=== PATIENT | female | born 1955 | race Caucasian/White ===

== ENCOUNTER 2022-11-24 08:40 | Emergency (ER) | payer OTHER, SELFPAY ==
[2022-11-24] VITALS (10 sets, daily range): BP systolic 143–202; BP diastolic 70–114; PULSE 82–108; RESP 18; TEMP 36.3; O2SAT 92–97; BMI 42.9
--- NOTE | 2022-11-24 09:12 | CRLHL7_ITS ---
For Patients: As a result of the Cures Act, medical imaging exams and procedure reports are released immediately into your electronic medical record. You may view this report before your referring provider. If you have questions, please contact your health care provider. Indication: Fall, injury Technique: Three views Comparison: None Findings/Impression: There is a comminuted fracture of the distal radial metaphysis. Fracture is transverse with dorsal displacement of the distal fracture fragment by 4 millimeters. Dorsal angulation with longitudinal extension of the fracture to the articular surface. Associated ulnar styloid avulsion without significant displacement. Prominent soft tissue swelling. Dictated by Min Hopper MD @ 11/24/2022 10:40:39 AM (Electronically Signed)
[2022-11-24] MEDS: ACETAMINOPHEN 500 MG TABLET 1000 MG PO (10:18)
[2022-11-24] MEDS: 0.9 % SODIUM CHLORIDE 1000 ml 1,000 ML IV (11:57)
[2022-11-24] MEDS: KETOROLAC 15 MG/ML inj IVP (12:03)
[2022-11-24] MEDS: MIDAZOLAM HCL 1 MG/ML inj 2 MG IVP (12:38)
[2022-11-24] MEDS: fentaNYL 100 MCG/2 ML inj 50 MCG IVP (12:39)
--- NOTE | 2022-11-24 12:39 | CRLHL7_ITS ---
For Patients: As a result of the Century Cures Act, medical imaging exams and procedure reports are released immediately into your electronic medical record. You may view this report before your referring provider. If you have questions, please contact your health care provider. Indication: Trauma. Postreduction films. Technique: Two views left wrist Comparison: 11/24/2022. Findings/Impression: Comminuted, mildly displaced fracture of the distal radius. Improved alignment postreduction, with mild residual displacement. Nondisplaced ulnar styloid fracture, unchanged. Dictated by Colin Aparicio MD @ 11/24/2022 1:25:52 PM (Electronically Signed)
--- NOTE | 2022-11-24 12:40 | ED.NURSE ---
Reduction completed to right wrist with minimal sedation. Patient tolerated well. No use of supplemental oxygen required.
--- NOTE | 2022-11-24 14:05 | ED.UPPEXIN ---
HPI - Extremity Injury (Upper) General Date Seen: 11/24/22 Chief Complaint: Extremity Pain/Injury, Upper Stated Complaint: Fall, wrist injury, hit head Time Seen by Provider: 11/24/22 08:51 Source: patient and family Mode of arrival: ambulatory Limitations: no limitations History of Present Illness HPI narrative: Patient is a 66-year-old female who tripped at home and suffered a left distal fracture, she suspects. She has a hard time moving her fingers, no numbness and tingling weakness, she did hit her head, but denies having any loss of conscious is on no anticoagulants, and does not want to be checked really for this. As she says her problem is her wrist. Here with her . Denies any numbness tingling or weakness, denies any neck pain or stiffness, nausea vomiting, or other issue. complaint: injury to: left Onset (ago): minute(s) Other injuries: none Hand dominance: Right Place: home Severity: moderate Related Data Home Medications Medication Instructions Recorded Confirmed No Known Home Medications 11/24/22 11/24/22 Allergies Allergy/AdvReac Type Severity Reaction Status Date / Time No Known Drug Allergies Allergy Verified 11/24/22 09:01 Review of Systems Status of ROS: Reports: 10 or more systems reviewed and unremarkable except as noted in History and below PFSH [facility] Social History Smoking Status: Never smoker Do you use any of these nicotine containing products: None Second hand tobacco smoke exposure: No How often do you have a drink containing alcohol: monthly or less How many standard drinks containing alcohol do you have on a typical day: 1 or 2 How often do you have six or more drinks on one occasion: Never AUDIT-C Alcohol total score: 1 Non-prescribed substance use: denies use service: No Exam Narrative: Exam Narrative: Patient is seen in room 1, sure left wrist has an obvious dinner fork deformity, there is no evidence of any significant the sensory abnormality abnormality of her wrist, or elbow, or shoulder, her neck has excellent cervical spine motion, flexion extension lateral flexion rotation, there is a bit of an abrasion on her nose, no bleeding, her nose appears straight there is no midfacial tenderness, pupils are equal round reactive to light her TMs are normal oropharynx is normal, Const: Vital Signs, click to edit/add: Vital Signs - 24 hr 11/24/22 08:55 11/24/22 10:18 11/24/22 11:56 Temperature 97.3 F L Pulse Rate 86 Pulse Rate [Right Pulse Oximeter] 108 H Respiratory Rate 18 Blood Pressure Blood Pressure [Ri ght Upper Arm] 202/114 H 196/94 H Pulse Oximetry 94 95 Oxygen Delivery Me thod Room Air 11/24/22 11:57 11/24/22 12:00 11/24/22 12:02 Temperature Pulse Rate 84 84 88 Pulse Rate [Right Pulse Oximeter] Respiratory Rate Blood Pressure 168/70 H 168/86 H Blood Pressure [Ri ght Upper Arm] Pulse Oximetry 95 97 96 Oxygen Delivery Me thod 11/24/22 12:15 11/24/22 12:21 11/24/22 12:30 Temperature Pulse Rate 84 82 86 Pulse Rate [Right Pulse Oximeter] Respiratory Rate Blood Pressure 174/90 H Blood Pressure [Ri ght Upper Arm] Pulse Oximetry 97 96 92 Oxygen Delivery Me thod 11/24/22 12:32 Temperature Pulse Rate 91 Pulse Rate [Right Pulse Oximeter] Respiratory Rate Blood Pressure 143/74 H Blood Pressure [Ri ght Upper Arm] Pulse Oximetry 94 Oxygen Delivery Me thod Course Vital Signs Vital signs: Initial Vital Signs Temperature 97.3 F L 11/24/22 08:55 Temperature Source Temporal Artery Scan 11/24/22 08:55 Pulse Rate 108 H 11/24/22 08:55 Respiratory Rate 18 11/24/22 08:55 Blood Pressure 202/114 H 11/24/22 08:55 Blood Pressure Mean 143 H 11/24/22 08:55 Blood Pressure Position Sitting 11/24/22 08:55 Pulse Oximetry 94 11/24/22 08:55 Oxygen Delivery Method Room Air 11/24/22 08:55 Vital Signs Temperature 97.3 F L 11/24/22 08:55 Pulse Rate 108 H 11/24/22 08:55 Respiratory Rate 18 11/24/22 08:55 Blood Pressure 202/114 H 11/24/22 08:55 Pulse Oximetry 94 11/24/22 08:55 Oxygen Delivery Method Room Air 11/24/22 08:55 Temperature 97.3 F L 11/24/22 08:55 Pulse Rate 91 11/24/22 12:32 Respiratory Rate 18 11/24/22 08:55 Blood Pressure 143/74 H 11/24/22 12:32 Pulse Oximetry 94 11/24/22 12:32 Oxygen Delivery Method Room Air 11/24/22 08:55 MDM - Extremity Injury (Upper) MDM Narrative Medical decision making narrative: Life-threatening differential diagnosis is considered include: Subarachnoid hemorrhage, subdural hemorrhage, epidural hemorrhage. Other differential diagnosis considered include concussion, closed head injury, or neck fracture. She clearly has what appears to be a distal radial fracture, this was confirmed. On x-ray. There was some displacement, and she needs to have this disimpacted, and straightening. I discussed with her options available to her, and we decided on IV sedation, using fentanyl and Versed, which worked well, I use the hematoma block, into the fracture, I was able to very nicely disimpacted, and straight no fracture, she is put in splint, molded to her, lower arm. Post reduction she has excellent radial and brachial pulses, cap refills normal sensations normal and felt much improved, pain hayes. We were able to discuss this with Orthopedics, they will see her tomorrow in follow-up. Post reduction films look much improved. Differential Diagnosis Differential diagnosis: Likely fracture of wrist Lab Data Attestation: I reviewed the patient's lab results. Discharge Plan Discharge Clinical Impression: Fracture of wrist Patient Disposition: Home w/ Parent or Adult Condition: Improved Instructions: Arm Fracture in Adults (DC), Wrist Fracture in Adults (ED), ORIF of a Wrist Fracture (DC) Additional Instructions: Follow up appointment is scheduled at the [facility] on 11/25 with a 10:40am appointment time. Please arrive at 10:20am to complete paperwork. If you have any questions, please call [phone]. [facility] [address] [address] home,rest and tylenol and ibuprofen, suggest elevation and to be seen tommorow. Prescriptions: No Action No Known Home Medications Follow Up/Referrals: Provider,Not a Local [Primary Care Provider] - Stand Alone Forms: [employer] Info Instructions
== END 2022-11-24 13:43 | disposition home or self-care (01) ==
PROVIDERS: Emergency Provider Family Medicine
DX: S52.502A Unspecified fracture of the lower end of left radius, initial encounter for closed fracture (principal); W01.0XXA Fall on same level from slipping, tripping and stumbling without subsequent striking against object, initial encounter
CPT/HCPCS: 25605; 73100; 73110; 96374; 96375; 99284; A9270; J1885; J2250; J3010; J7030

== ENCOUNTER 2022-11-25 11:50 | Outpatient (CLI) | payer OTHER, SELFPAY | END 2022-11-25 11:51 | disposition home or self-care (01) | PROVIDERS: Visit Provider Physician Assistant | DX: Z01.818 Encounter for other preprocedural examination (principal) | CPT/HCPCS: 80048; 85025 ==

== ENCOUNTER 2022-11-26 07:51 | Day surgery (SDC) | payer OTHER, SELFPAY ==
[2022-11-26] VITALS (8 sets, daily range): BP systolic 126–172; BP diastolic 69–97; PULSE 81–96; RESP 16–18; TEMP 36.2–36.8; O2SAT 93–98; BMI 44.2
[2022-11-26] MEDS: LACTATED RINGERS 1000 ML 1,000 ML 100 ML IV (08:40)
--- NOTE | 2022-11-26 08:47 | SUR.PREOP ---
TIME?OUT:?0850 AM PT/RN/MDA?VERIFICATION?OF?SURGICAL?SITE,?PROCEDURE,?AND?CONSENT OBTAINED?PRIOR?TO?INVASIVE?PROCEDURE.
[2022-11-26] MEDS: fentaNYL 100 MCG/2 ML inj IVP (08:50)
[2022-11-26] MEDS: MIDAZOLAM HCL 1 MG/ML inj IVP (08:50)
--- NOTE | 2022-11-26 08:58 | P.NB_ITS ---
Nerve Block Nerve Block Time Seen by Provider: 08:57 Date Seen: 11/26/22 Type of block requested by surgeon for post-operative analgesia: axillary Time out performed: Yes Verification of patient name: Yes Verification of date of : Yes Site marking: site marked Name of person performing procedure: Thiago Continuous monitoring Was continuous monitoring of O2 sat, B/P, nuclear monitoring technician, recorded every 15 minutes?: Yes Procedure Checklist: sterile prep, needles and gloves Ultrasound guided. Images saved: Yes Medications given in 5ml increments after negative aspiration: Ropivicaine %: 0.5 mL: 30 Needle gauge: 22 Patient tolerated procedure well: Yes Additional comments: Needle noted adjacent to nerve Block Charges Block Charge (with Pro Fee): Brachial Plexus Use of Ultrasound Machine for Block: Yes- US Guidance/pain block
--- NOTE | 2022-11-26 08:59 | W.ANESCHARGE ---
Anesthesia Charges Start Date/Time Anesthesia Start Date: 11/26/22 Anesthesia Start Time: 09:19 Stop Date/Time Anesthesia Stop Date: 11/26/22 Anesthesia Stop Time: 11:02
[2022-11-26] MEDS: SODIUM CHLORIDE 0.9 % (FLUSH) 10 ML SYRINGE IVF (09:04)
--- NOTE | 2022-11-26 09:15 | CRLHL7_ITS ---
For Patients: As a result of the Cures Act, medical imaging exams and procedure reports are released immediately into your electronic medical record. You may view this report before your referring provider. If you have questions, please contact your health care provider. INDICATION: Left wrist fracture. Open reduction. Internal fixation. TECHNIQUE: Fluoroscopically guided open reduction internal fixation of the left wrist. COMPARISON : Comparison is made with pre-surgical images November 24, 2022. FINDINGS: Three portable spot intraoperative images of left wrist were performed. A plate screw fixation device bridges the distal left radius. Adequate alignment. 67.2 seconds fluoroscopy time utilized. IMPRESSION: 67.2 seconds fluoroscopy time utilized intraoperatively. Dictated by Gagandeep Sahni MD @ 11/26/2022 10:51:18 AM (Electronically Signed)
[2022-11-26] MEDS: CEFAZOLIN 2 GM INJ IVP (09:34)
--- NOTE | 2022-11-26 10:45 | P.ORPRC_ITS ---
Procedure Note Date of procedure: 11/26/22
--- NOTE | 2022-11-26 10:45 | PM.ORPRC ---
Procedure Note Date of procedure: 11/26/22
--- NOTE | 2022-11-26 10:52 | PM.ORPRC ---
Procedure Note Date of procedure: 11/26/22 Procedure: PREOPERATIVE DIAGNOSIS: Angulated 3+ part intra-articular left upper extremity distal radius fracture POSTOPERATIVE DIAGNOSIS: Angulated 3+ part intra-articular left upper extremity distal radius fracture NAME OF OPERATION: Open reduction internal fixation SURGEON: Trae Merritt MD MOBILE HOME MECHANIC: Coco Cespedes PA-C ANESTHESIA: Supraclavicular block plus monitored anesthesia care ESTIMATED BLOOD LOSS: 0 mL COMPLICATIONS: None SPECIMENS: None DRAINS: None PREOPERATIVE ANTIBIOTICS: Ancef 2 grams INDICATIONS: The patient is a 66-year-old who fell landing on their upper extremity sustaining the above injury. Given the amount of angulation, reduction and plate fixation were recommended. The risks, benefits and expected outcomes were discussed in detail. These included but were not limited to: Infection, bleeding, injury to blood vessel or nerve, venous thromboembolism. All questions were answered to their satisfaction. Use of an assistant operations manager was necessary throughout the case for patient positioning and safety, maintenance of the reduction, surgical site dressing and splint application. PROCEDURE: A supraclavicular block was placed by Anesthesia. The patient was placed supine on the operating room table. IV sedation was administered. The reduction was obtained with longitudinal traction and volar force on the distal fragment, held by the assistant operations manager. The image intensifier was used to confirm an excellent reduction. The extremity was prepped and draped in the usual sterile fashion. The limb was exsanguinated with the Claudio bandage. The pneumatic tourniquet was inflated to 250 mm of mercury. A longitudinal incision was made over the flexor carpi radialis. Subcutaneous dissection was taken sharply through the FCR sheath. The FCR was retracted radially. Sharp dissection was carried through the floor of the FCR sheath. The flexor pollicis longus was retracted ulnarly. Sharp dissection was carried through the radial border of the pronator quadratus which was elevated ulnarly, exposing the fracture site. The assistant operations manager held retractors to expose the fracture. The volar cortex of the fracture is anatomically aligned. We placed a Synthes standard, 3 hole volar locking plate over the volar cortex. It was provisionally held with 2 K-wires, while the assistant operations manager held the reduction. Its placement was confirmed with the image intensifier. We placed a cortical screw in the slot. We placed a locking screw in the shaft. We then filled the distal screw holes with smooth locking pegs using the image intensifier to confirm their extra-articular placement. Finally, a 2nd locking screw was placed in the shaft fragment. This construct was imaged in multiple views and was felt to be well placed with an anatomic reduction and well placed implants. The wound was irrigated normal saline. Subcutaneous tissues were reapproximated a 2-0 Vicryl, skin with a running 3-0 Monocryl in a subcuticular fashion. Glue was used to seal the skin. A dry dressing and short-arm dorsal volar splint was applied. These steps were all completed by the assistant operations manager. The tourniquet was released, sponge and needle counts were correct x2. The patient tolerated the procedure well, there were no apparent complications. They were taken to the postanesthesia care unit in satisfactory condition. PLAN: The patient will be discharged home. They will work on elevation of the hand and active range of motion of the fingers. They will follow up next week in the office for a wound check with a PA, oblique, lateral and fossa lateral view of the wrist out of the splint prior to being seen in preparation for a short-arm, waterproof cast for a total of 6 weeks of immobilization.
--- NOTE | 2022-11-26 11:02 | W.ANESCHARGE ---
Anesthesia Charges Start Date/Time Anesthesia Start Date: 11/26/22 Anesthesia Start Time: 09:19 Stop Date/Time Anesthesia Stop Date: 11/26/22 Anesthesia Stop Time: 11:02
== END 2022-11-26 12:03 | disposition home or self-care (01) ==
PROVIDERS: Visit Provider Orthopaedic Surgery
PROC: (CPT 25575; principal; 2022-11-26 09:15)
DX: S52.572A Other intraarticular fracture of lower end of left radius, initial encounter for closed fracture (principal); G89.18 Other acute postprocedural pain
CPT/HCPCS: 25609; 1830; 64415; 73110; 76000; 76942; A4580; C1713; J0690; J1100; J2250; J2405; J2704; J2795; J3010; J7120

== ENCOUNTER 2023-03-31 11:00 | Outpatient (RCR) | payer OTHER, SELFPAY ==
--- NOTE | 2023-01-13 16:00 | OT.OPOE ---
OT Outpatient Ortho Eval OT Outpatient Ortho Eval* Start: 01/12/23 15:42 Freq: Status: Active Protocol: Document 01/13/23 09:02 AMB (Rec: 01/13/23 15:58 AMB [id number]) E-signed By Cierra Hansen, OTR/L, CLT, FOUNDER CHAIRMAN AND CHIEF CREATIVE OFFICER OT OP Ortho Eval Details Complexity Complexity Low Insurance Information Insurance Information Medicare B Outpatient History/Precautions Current Condition/Medical Diagnosis Referring Provider Dr Merritt Treatment Diagnosis LUE wrist ORIF Date of Onset DOI: 12/24/22, DOS:12/26/22 Precautions Lifting Restrictions Medical Conditions Metal Implants Other Conditions PMH is relatively unremarkable , pt has distant hx of a toe fracture. Pt denies any medication use other than occasional Tylenol for her current wrist pain. Medical/Functional History Medical History Reviewed Yes Prior Level of Function/Mobility Full, pain-free use of her LUE . Social History Employment Status Retired [employer] Subjective Subjective Subjective Pt states that on 12/24/22 she fell down her steps in her garage, landing on her LUE hand. Pt was seen in the ER, splinted and referred to orthopedics. Pt underwent ORIF with Dr Merritt and underwent surgery for ORIF on 12/26/22. Pt states she had cast removed last week. Pt feels she is doing ok but having a lot of swelling and is struggling to move her fingers. Pt wears her splint all the time except with shower. Pt states her average pain is 0/10, occasionally has pain spikes up to an 8/10, depending on what she does. Goniometric Comments Goniometric Comments Goniometric Comments 01/13/23 AROM of BUElsy is WNL throughout with the exception of her LUE forearm, wrist and hand. AROM of the BRYAN forearm pronation is 40deg, and supination is 5 deg. AROM of the LUE wrist flexion is 25, ext is 15, UD is 5, RD is 15. AROM of the LUE hand, composite fist is limited to - 3.5cm from DPC measured at the tip of MF. OT Objective Data Skin/Wounds/Edema Comments 01/13/23 Surgical incision is healing well, closed, no drainage and not s/s OT Problems Problems Problems Decreased Strength,Decreased Range of Motion,Decreased Dexterity,Pain,Decreased Coordination,Lifting,Gripping, Pinching Other Problems Opening Containers,Computer Patient Potential Good Assessment Assessment Assessment Pt presents to OT with pain, swelling, weakness, and limited AROM in her LUE which limits her ability to lift, carry, open containers, and complete any activity that requires use of BUE. Pt will benefit from skilled OT intervention to address limitations and restore full, pain-free use of her LUE. Occupational Therapy Treatment Plan - OP Potential Rehabilitation Potential Good Set Goals Goals Set with Patient Yes Goals Goals 1. Pt will be independent and compliant with HEP in order to resume full, pain-free use of the involved UE. 3 weeks 2. Pt will demonstrate full, pain-free AROM of the involved UE in order to improve ability to grasp and hold. 6 weeks 3. Pt will demonstrate pain- free pegger and pinch strength comparable to the uninvolved side in order to improve functional grasp, hold, reach, and lifting ability needed to complete self-care, leisure tasks, and work activities. 8 weeks. Target Date 03/15/23 Treatment Plan Treatment Plan Evaluation,Edema Control,Joint Mobilization,Manual Therapy, Therapeutic Exercise,Self Care /Home Management,Education Expected Frequency 1-2x Week Expected Duration 8-10 Weeks Home Program Home Program Home Program Initiated Home Program Specifics 01/13/23 Initiated HEP for AROM of the LUE forearm, wrist, fingers, and thumb. Also added non resisted mm pumps for edema reduction. Following demo, pt is able to complete exs with minimal cues. Pt was provided with written inst for use at home as well. Certification Certification I Certify That: Therapy Services Provided, Therapy Plan Established, Therapy Plan Reviewed
== END 2023-06-16 17:15 | disposition home or self-care (01) ==
PROVIDERS: Visit Provider Orthopaedic Surgery
DX: Z98.890 Other specified postprocedural states (principal); Z51.89 Encounter for other specified aftercare
CPT/HCPCS: 97035; 97140; 97165